=== PATIENT | female | born 1980 | race Caucasian/White ===

== ENCOUNTER 2017-08-15 09:17 | Inpatient (IN) | payer OTHER ==
[2017-08-15] MEDS ORDERED: ANCEF/STERILE WATER 2 GM/20 ML 2 GM/20 ML SYRINGE IV NR ×2 (10:00→12:00)
[2017-08-15] MEDS ORDERED: REGLAN IV NR (10:00)
[2017-08-15] MEDS ORDERED: PEPCID IV NR (10:00)
[2017-08-15] MEDS ORDERED: BICITRA PO NR (10:00)
[2017-08-15] MEDS ORDERED: PITOCin/NS 20 UNIT/1000ML DRIP 20 UNITS/1,000 ML BAG IV SCH ×2 (10:00→14:00)
[2017-08-15 10:29] LABS: Basophils % (Auto) 0.3 % (0.0-1.8); Eosinophils % (Auto) 0.4 % (0.0-4.3); Hematocrit 41.7 % (30.3-42.9); Hemoglobin 13.9 gm/dl (10.1-14.3); Lymphocytes # (Auto) 1.8 K/mm3 (1.2-5.4); Lymphocytes % (Auto) 21.1 % (13.4-35.0); Mean Corpuscular HGB Conc 33 % (30-34); Mean Corpuscular Hemoglobin 31 pg (28-32); Mean Corpuscular Volume 94 fl (79-97); Monocytes # (Auto) 0.5 K/mm3 (0.0-0.8); Monocytes % (Auto) 5.6 % (0.0-7.3); Platelet Count 164 K/mm3 (140-440); Red Blood Count 4.44 M/mm3 (3.65-5.03)
[2017-08-15] MEDS: LACTATED RINGERS 1,000 ML IV SCH ×3 (10:50→23:56)
[2017-08-15] MEDS ORDERED: PEPCID IV ONE (11:12)
[2017-08-15] MEDS ORDERED: REGLAN IV ONE (11:12)
[2017-08-15] MEDS ORDERED: BICITRA PO ONE (11:12)
--- NOTE | 2017-08-15 11:26 | History and Physical Report ---
History of Present Illness Date of examination: 08/15/17 Date of admission: 08/15/17 09:17 Chief complaint: 39 weeks not in labor History of present illness: Patient is a 37 year old , LMP 11/12/16, EDC 08/19/17 at 39 weeks and 3 days gestation who was admitted for elective repeat C/section. She denies any contractions, fluid leakage or bleeding. She reports good movement. She has a history of A1GDM. Her glucose has been well controlled. tracing is CAT 1. Past History Past Surgical History: section Family/Genetic History: diabetes, other (Both parents have type 2 DM) Social history: no significant social history - Obstetrical History Expected Date of Delivery: 08/19/17 Actual Gestation: 39 Week(s) 3 Day(s) : 4 Para: 1 Number of Pregnancies: 0 Spontaneous Abortions: 2 Number of Living Children: 1 Medications and Allergies Allergies Allergy/AdvReac Type Severity Reaction Status Date / Time No Known Allergies Allergy Verified 08/15/17 10:06 Home Medications Medication Instructions Recorded Confirmed Last Taken Type Iron 100 Plus Tablet 1 tab PO QDAY 08/15/17 08/15/17 08/14/17 08:00 History Vitamin Tablet 1 tab PO QDAY 08/15/17 08/15/17 08/14/17 08:00 History Active Meds: Active Medications Citric Acid/Sodium Citrate (Bicitra) 30 ml PO ONCE NR Stop: 08/15/17 18:00 Last Admin: 08/15/17 11:04 Dose: 30 ml Citric Acid/Sodium Citrate (Bicitra) 30 ml PO ONCE ONE Stop: 08/15/17 11:13 Famotidine (Pepcid) 20 mg IV ONCE NR Stop: 08/15/17 18:00 Last Admin: 08/15/17 11:05 Dose: 20 mg Famotidine (Pepcid) 20 mg IV ONCE ONE Stop: 08/15/17 11:13 Cefazolin Sodium (Ancef/Sterile Water 2 Gm/20 Ml) 2 gm in 20 mls @ 80 mls/hr IV PREOP NR PRN Reason: Protocol Stop: 08/15/17 18:00 Lactated Ringer's (Lactated Ringers) 1,000 mls @ 2,250 mls/hr IV PREOP MARISSA Stop: 08/16/17 10:27 Last Admin: 08/15/17 10:51 Dose: 2,250 mls/hr Oxytocin/Sodium Chloride (Pitocin/Ns 20 Unit/1000ml Drip) 20 units in 1,000 mls @ 0 mls/hr IV TITR MARISSA PRN Reason: As Directed Lactated Ringer's (Lactated Ringers) 1,000 mls @ 2,250 mls/hr IV PREOP MARISSA Stop: 08/16/17 12:27 Cefazolin Sodium (Ancef/Sterile Water 2 Gm/20 Ml) 2 gm in 20 mls @ 80 mls/hr IV PREOP NR PRN Reason: Protocol Influenza Virus Vaccine Quadrival (Fluarix Quad [id number](36 Mos+) 0.5 ml IM .ONCE ONE Stop: 08/16/17 12:01 Metoclopramide HCl (Reglan) 10 mg IV ONCE NR Stop: 08/15/17 18:00 Metoclopramide HCl (Reglan) 10 mg IV ONCE ONE Stop: 08/15/17 11:13 - Vital Signs Vital signs: Vital Signs Pulse BP Pulse Ox 95 H 136/85 98 08/15/17 09:42 08/15/17 09:42 08/15/17 09:42 Temp Pulse Resp BP Pulse Ox 98.3 F 78 18 137/78 99 08/15/17 10:34 08/15/17 11:12 08/15/17 10:34 08/15/17 11:12 08/15/17 09:52 - Physical Exam Cardiovascular: Normal S1, Normal S2 Lungs: Positive: Clear to auscultation Vulva: both: normal Adnexa: both: normal Deep Tendon Reflex Grade: Normal +2 - Obstetrical FHR: category 1 Uterine Contraction Monitor Mode: External Cervical Dilatation: 1 Cervical Effacement Percentage: 50 station: -3 Uterine Contraction Pattern: Absent Results Result Diagrams: 08/15/17 10:00 Abnormal lab results 08/15/17 Range/Units 10:00 RDW 13.0 L (13.2-15.2) % Seg Neutrophils % 72.6 H (40.0-70.0) % All other labs normal. Assessment and Plan - Patient Problems (1) 39 weeks gestation of Current Visit: Yes Status: Acute Plan to address problem: Admit to Floor. (2) Previous section Current Visit: Yes Status: Acute Plan to address problem: Patient wants elective repeat C/section. Risks, benefits of the procedure were discussed in detail with the patient such as infection, hemorrhage requiring blood transfusion, injury to the bowel, bladder and blood vessels. She expressed understanding, her questions were answered, she gave her informed consent. Routine admitting labs sent. IV bolus. Anesthesia aware. Keep NPO. (3) Declines (vaginal after ) trial Current Visit: Yes Status: Acute (4) Gestational diabetes Current Visit: Yes Status: Acute Plan to address problem: Patient has been monitoring her glucose and it has been fairly controlled.
[2017-08-15] MEDS ORDERED: WATER FOR IRRIG STERILE IR ONE (11:40)
[2017-08-15] MEDS ORDERED: NACL 0.9% IR ONE (11:40)
[2017-08-15] MEDS ORDERED: ASTRAMORPH PF 10MG/10ML ONE (11:46)
[2017-08-15] MEDS ORDERED: LACTATED RINGERS 1,000 ML IV SCH (12:00)
[2017-08-15] MEDS ORDERED: METHERGINE IM ONE (12:00)
[2017-08-15] MEDS ORDERED: NEO SYNEPHRINE/NS Syringe(OR USE) IV ONE (12:07)
[2017-08-15] MEDS ORDERED: ANCEF/STERILE WATER 2 GM/20 ML IV ONE (12:10)
[2017-08-15] MEDS ORDERED: HEMABATE IM ONE (12:41)
[2017-08-15] MEDS ORDERED: ZOFRAN ONE (12:45)
[2017-08-15] MEDS ORDERED: TORADOL IV PRN (13:09)
[2017-08-15] MEDS ORDERED: SENOKOT PO PRN (13:09)
[2017-08-15] MEDS ORDERED: NARCAN 0.4 MG/1 ML IV PRN ×2 (13:09→13:40)
[2017-08-15] MEDS ORDERED: LANSINOH TP PRN (13:09)
[2017-08-15] MEDS ORDERED: MORPHINE IV PRN (13:09)
[2017-08-15] MEDS ORDERED: MOTRIN PO PRN (13:09)
[2017-08-15] MEDS ORDERED: MILK OF MAGNESIA PO PRN (13:09)
[2017-08-15] MEDS ORDERED: TUCKS PAD TP PRN (13:09)
[2017-08-15] MEDS ORDERED: TYLENOL PO PRN (13:09)
[2017-08-15] MEDS ORDERED: ZOFRAN IV PRN ×2 (13:09→13:40)
--- NOTE | 2017-08-15 13:39 | Anesthesia Consultation ---
Anesthesia Consult and Med Hx Date of service: 08/15/17 - Airway Anesthetic Teeth Evaluation: Good ROM Head & Neck: Adequate Mental/Hyoid Distance: Adequate Mallampati Class: Class II Intubation Access Assessment: Probably Good - Pre-Operative Health Status ASA Pre-Surgery Classification: ASA2 Proposed Anesthetic Plan: Epidural, Spinal - Pulmonary Hx Asthma: No COPD: No Hx Pneumonia: No - Central Nervous System Hx Seizures: No Hx Psychiatric Problems: No - Endocrine Hx Renal Disease: No Hx End Stage Renal Disease: No Hx Hypothyroidism: No Hx Hyperthyroidism: No - Hematic Hx Anemia: Yes Hx Sickle Cell Disease: No - Other Systems Hx Alcohol Use: No
[2017-08-15] MEDS ORDERED: BENADRYL IV PRN (13:40)
[2017-08-15] MEDS ORDERED: PHENERGAN PO PRN (13:40)
[2017-08-15] MEDS ORDERED: PHENERGAN PR PRN (13:40)
[2017-08-15] MEDS ORDERED: DILAUDID IV PRN (13:40)
--- NOTE | 2017-08-15 13:40 | Anesthesia Day of Surgery ---
Anesthesia Day of Surgery - Day of Surgery Patient Examined: Yes Patient H&P Reviewed: Yes Patient is NPO: Yes
[2017-08-15] MEDS ORDERED: SODIUM CHLORIDE FLUSH SYRINGE 10 ML IV SCH (14:00)
[2017-08-15] MEDS ORDERED: SODIUM CHLORIDE FLUSH SYRINGE 10 ML IV NR (14:00)
--- NOTE | 2017-08-15 14:17 | Operative Report ---
Operative Report Operative Report: Preoperative diagnosis: 1. SIUP at 39 weeks and 3 days gestation not in labor. 2. Previous Cesarian section. 3. Declined . Post operative diagnosis: Same as pre-operative diagnosis. Procedure: Repeat low transverse section. Surgeon: Dr. [employer] Lawyer: none Anesthesia: Spinal EBL: 900 cc IVF: 1400 cc RL Urine: 250 cc clear Complications: Intraoperative uterine atony responsive to IV pitocin and myometrial hemabate. Intraoperative findings: 1. A male found in an DIOR position, delivered at 12:27 PM, Apgars 8 at 1 minutes and 9 at 5 minutes, weight 7 lbs. 5 oz. 2. Intraoperative uterine atony responsive to IV Pitocin and myometrial Hemabate. Procedure details: Risks, benefits, and alternatives of the procedure were discussed in detail with the patient which included but not limited to the risk of infection, hemorrhage requiring blood transfusion, and injury to the bowel or bladder and blood vessels. The patient expressed understanding, her questions were answered , and she gave informed consent. The patient was taken to the operating room with an IV fluids infusing Ringer's lactate. In the operating room, she was placed in a sitting position and given spinal anesthesia. Then, she was placed in a dorsal supine position with a leftward tilt. Handy catheter and Venodyne boots were placed. The abdomen was washed and she was prepared and draped in usual sterile fashion. After confirming adequate spinal anesthesia, a Pfannenstiel skin incision was made in the lower abdomen abdomen at the level of the previous scar using the scalpel about 2 cm above the pubic symphysis. This incision was carried down to the underlying fascia using the Bovie. The fascia was incised bilaterally in a curvilinear fashion using the Bovie. 2 straight Kocker clamps were used to grasp the upper edge of the fascia from which the underlying rectus abdominis muscles were dissected off using the Bovie. A similar procedure was done with the lower edge of the fascia to dissect the underlying rectus abdominis muscle. The muscle was bluntly from the midline by pulling. The parietal peritoneum was grasped with 2 hemostat clamps and entered sharply using Metzenbaum scissors. A quick survey of the anatomy revealed a gravid uterus and normal fallopian tubes and ovaries bilaterally. A bladder flap was created. Hitesh'O retractor was placed at the incision. A low transverse incision was made in the lower uterine segment using the scalpel followed by bandage scissors in a curvilinear fashion. The amniotic sac was ruptured. There was copious amount of clear amniotic fluid. The was found in OA position. The head was delivered atraumatically followed by the delivery of the shoulders and the rest of the body at 12:27 pm. The cord was clamped 2 and cut and the was handed off to the awaiting gasoline tractor operator. Cord blood was collected. The placenta was delivered manually it was completely three-vessel cord. The was a male, delivered at 12:27 PM, Apgars were 8 at 1 minutes and 9 at 5 minutes, weight 7 pounds and 5 ounces. The uterine cavity was cleaned of clot and debris using dry lap sponges. The uterine incision was closed in a running locked fashion using 0 Vicryl sutures. A second layer of imbrication was placed. The gutters were cleaned of clots and debris using dry lap sponges. After confirming adequate hemostasis, the instruments were removed from the abdomen. The fascia was closed in a running fashion using 0 Vicryl sutures. The skin was closed with damaso. Sterile dressing was placed. The counts of laps, needles, and sponges and instruments were correct 2. The patient tolerated the procedure well. She was taken to the recovery room in a stable condition.
[2017-08-15] MEDS ORDERED: MORPHINE ONE (14:21)
[2017-08-15 15:36] LABS: Basophils % (Auto) 0.1 % (0.0-1.8); Hematocrit 42.7 % (30.3-42.9); Hemoglobin 14.1 gm/dl (10.1-14.3); Lymphocytes # (Auto) 1.2 K/mm3 (1.2-5.4); Mean Corpuscular HGB Conc 33 % (30-34); Mean Corpuscular Hemoglobin 31 pg (28-32); Mean Corpuscular Volume 94 fl (79-97); Monocytes # (Auto) 0.5 K/mm3 (0.0-0.8); Monocytes % (Auto) 3.3 % (0.0-7.3); Platelet Count 156 K/mm3 (140-440); Red Blood Count 4.55 M/mm3 (3.65-5.03); Red Cell Distribution Width 13.4 % (13.2-15.2)
[2017-08-16 02:09] LABS: Hematocrit 34.6 % (30.3-42.9); Hemoglobin 11.7 gm/dl (10.1-14.3)
[2017-08-16] MEDS ORDERED: BOOSTRIX IM ONE (06:00)
[2017-08-16] MEDS ORDERED: VISTARIL PO PRN (09:49)
--- NOTE | 2017-08-16 09:55 | Progress Note ---
Assessment and Plan A: POD #1 Generalized Pruritus P: Follow Routine PostOp Orders Hydroxyzine 50mg q 6 hours PRN pruritus Subjective - Subjective Date of service: 08/16/17 Patient reports: appetite normal, voiding normally, pain well controlled, flatus , ambulating normally, other (complains of generalized itching) : doing well, bottle feeding (and ) Objective - Vital Signs Latest vital signs: Vital Signs Temp Pulse Resp BP BP Pulse Ox 08/16/17 08:37 98.5 F 74 20 90/53 95 08/16/17 04:25 98.0 F 68 18 126/53 08/16/17 00:00 98.4 F 78 18 103/56 08/15/17 20:05 98.3 F 63 18 129/68 08/15/17 16:24 98.3 F 60 18 118/69 08/15/17 14:25 54 L 13 145/82 98 08/15/17 14:24 98.4 F 08/15/17 14:20 53 L 17 148/73 97 08/15/17 14:15 55 L 17 131/81 99 08/15/17 14:11 62 9 L 123/59 97 08/15/17 14:05 54 L 14 135/61 99 08/15/17 14:01 64 12 127/66 96 08/15/17 13:55 56 L 14 134/66 98 08/15/17 13:51 54 L 20 125/60 98 08/15/17 13:45 61 16 131/68 98 08/15/17 13:40 60 13 120/69 99 08/15/17 13:35 69 13 128/72 98 08/15/17 13:30 67 17 124/71 98 08/15/17 13:25 72 13 125/57 98 08/15/17 13:24 98.0 F 99 08/15/17 11:12 78 137/78 08/15/17 10:42 84 127/78 08/15/17 10:39 88 110/66 08/15/17 10:34 98.3 F 88 18 110/66 Intake and Output 08/15/17 08/16/17 08/16/17 22:59 06:59 14:59 Intake Total 240 240 Output Total 450 400 Balance -210 -160 Intake: Oral 240 240 Output: Urine 200 400 Indwelling Catheter 200 200 Void 200 Emesis 250 Other: Total, Intake Amount 120 240 Total, Output Amount 200 200 - Exam Breasts: Present: normal Cardiovascular: Present: Regular rate Lungs: Present: Clear to auscultation, Normal air movement Abdomen: Present: normal appearance, soft, normal bowel sounds Uterus: Present: normal, firm, fundal height below umbilicus Extremities: Present: normal Incision: Present: normal, dry, intact - Labs Labs: Abnormal lab results 08/15/17 08/15/17 Range/Units 10:00 15:11 WBC 15.3 H (4.5-11.0) K/mm3 RDW 13.0 L (13.2-15.2) % Lymph % (Auto) 8.0 L (13.4-35.0) % Seg Neutrophils % 72.6 H 88.6 H (40.0-70.0) % Seg Neutrophils # 13.5 H (1.8-7.7) K/mm3
[2017-08-16] MEDS ORDERED: Fluarix Quad 2017-2018(36 MOS+ IM ONE (12:00)
--- NOTE | 2017-08-16 12:35 | Progress Note ---
Subjective Date of service: 08/16/17 Interval history: 1st POD after Patient is in the bed, comfortable. Pain is well controlled with pain meds. Ambulated well. No residual neurological deficit. No anesthesia complications Objective - Constitutional Vitals: Vital Signs - 12hr 08/16/17 08/16/17 04:25 08:37 Temperature 98.0 F 98.5 F Pulse Rate 68 74 Respiratory 18 20 Rate Blood Pressure 90/53 Blood Pressure 126/53 [Right] O2 Sat by Pulse 95 Oximetry - Labs CBC & Chem 7: 08/16/17 01:29 Labs: Abnormal lab results 08/15/17 Range/Units 15:11 WBC 15.3 H (4.5-11.0) K/mm3 Lymph % (Auto) 8.0 L (13.4-35.0) % Seg Neutrophils % 88.6 H (40.0-70.0) % Seg Neutrophils # 13.5 H (1.8-7.7) K/mm3
--- NOTE | 2017-08-17 09:01 | Progress Note ---
Assessment and Plan - Patient Problems (1) 39 weeks gestation of Current Visit: Yes Status: Acute Plan to address problem: Admit to Floor. (2) Previous section Current Visit: Yes Status: Acute Plan to address problem: Patient wants elective repeat C/section. Risks, benefits of the procedure were discussed in detail with the patient such as infection, hemorrhage requiring blood transfusion, injury to the bowel, bladder and blood vessels. She expressed understanding, her questions were answered, she gave her informed consent. Routine admitting labs sent. IV bolus. Anesthesia aware. Keep NPO. (3) Declines (vaginal after ) trial Current Visit: Yes Status: Acute (4) Gestational diabetes Current Visit: Yes Status: Acute Plan to address problem: Patient will have 75-gm GTT at 6 weeks visit. (5) Status post repeat low transverse section Current Visit: Yes Status: Acute Plan to address problem: Patient is doing well. She desires to go home today. Incision is clean and dry. She will F/U in 1 week in office for wound check. Subjective - Subjective Date of service: 08/17/17 Principal diagnosis: S/P cesarian section Interval history: Patient is S/P repeat C/section. POD#2. She denies any complaint. She is tolerating regular diet well. Objective - Vital Signs Latest vital signs: Vital Signs Temp Pulse Resp BP Pulse Ox 08/17/17 00:00 98.6 F 84 18 106/61 08/16/17 23:54 20 08/16/17 16:29 99.2 F 87 18 106/63 95 08/16/17 12:48 98.5 F 92 H 18 103/57 Intake and Output 08/16/17 08/17/17 08/17/17 23:59 07:59 15:59 Intake Total 240 Balance 240 Intake: Oral 240 Other: Total, Intake Amount 240 # Voids Void 1 1 - Exam Narrative Exam: Chest: CTA B/L. Abd: soft, NT, incision is clean and dry. Perineum: normal lochia. Ext: no edema, no calf TN. No Francisco's sign. Cardiovascular: Present: Normal S1, Normal S2 Lungs: Present: Clear to auscultation Vulva: both: normal
--- NOTE | 2017-08-17 09:04 | Discharge Summary ---
Providers - Providers Date of Admission: 08/15/17 09:17 Date of discharge: 08/17/17 Attending physician: BARRIE ROCK MD Primary care physician: SHELLY FUENTES Hospitalization Reason for admission: section Delivery: Procedure: repeat low transverse Procedure details: See operative note. complications: none Discharge diagnosis: IUP at term delivered, other (S/P repeat C/section) [place] baby: male Condition at discharge: Stable Disposition: [place]-01 TO HOME OR SELFCARE - Discharge Diagnoses (1) 39 weeks gestation of Status: Acute (2) Previous section Status: Acute (3) Declines (vaginal after ) trial Status: Acute (4) Gestational diabetes Status: Acute (5) Status post repeat low transverse section Status: Acute Plan - Discharge Medications Prescriptions: Ibuprofen [Motrin] 800 mg PO Q8HR PRN #20 tablet PRN Reason: Pain, Mild (1-3) oxyCODONE /ACETAMINOPHEN [Percocet 5/325] 1 tab PO Q4HR #14 tab - Provider Discharge Summary Activity: no sex for 6 weeks, no heavy lifting 4 weeks, no strenuous exercise Diet: routine Additional instructions: [] Smoking cessation referral if applicable(refer to patient education folder for contact #) [] Refer to [facility] Booklet Call your doctor immediately for: * Fever > 100.5 * Heavy vaginal bleeding ( >1 pad per hour) * Severe persistent headache * Shortness of breath * Reddened, hot, painful area to leg or breast * Drainage or odor from incision. * Keep incision clean and dry at all times and follow doctor's instructions regarding bathing/showering - Follow up plan Follow up: SHELLY FUENTES MD [Primary Care Provider] - 7 Days
[2017-08-17 14:45] VITALS: BP 119/76
== END 2017-08-17 13:55 | disposition home or self-care (01) | DRG 766 ==
LOC: APU 09:17 → OB 14:54
PROVIDERS: ADMIT Obstetrics & Gynecology; ATTEND Obstetrics & Gynecology
PROC: 10D00Z1 Extraction of Products of Conception, Low, Open Approach (ICD-10-PCS; principal; 2017-08-15)
PROC: 3E0234Z Introduction of Serum, Toxoid and Vaccine into Muscle, Percutaneous Approach (ICD-10-PCS; 2017-08-15)
DX: O34.211 Maternal care for low transverse scar from previous cesarean delivery (principal); O24.429 Gestational diabetes mellitus in childbirth, unspecified control; O99.02 Anemia complicating childbirth; D64.9 Anemia, unspecified; O26.893 Other specified pregnancy related conditions, third trimester; Z37.0 Single live birth; Z3A.39 39 weeks gestation of pregnancy; Z83.3 Family history of diabetes mellitus; Z23 Encounter for immunization
CPT/HCPCS: 36415; 82962; 85014; 85018; 85025; 86592; 86850; 86900; 86901; 90471; 90686; 90715; 99211; G0008; G0463; J0690; J2210; J2270; J2274; J2370; J2405; J2590; J2765; J7120; Q0169; Q0177